=== PATIENT | female | born 1975 | race Caucasian/White ===

== ENCOUNTER → 2016-06-17 | Outpatient (CLI) | payer BC ==
[~2016-06-17] VITALS: Ht 163.8 cm; Wt 148.3 kg
[~2016-06-17] MED LIST: AMBIEN 5MG TABLE5 MG PO; BIAXIN PO; CETIRIZINE; CODEINE30 MG PO; DEPO PROVER150 MG/ML IM; DIOVAN PO; FASTIN30 MG PO; FLONASE NASAL S16 GM NS; FLOVENT; GLUCOPHAGE XR500 M1 PO; LISINOPRIL20 MG PO; MULTI VITAMINS1 TAB PO; PROVENTIL0.09 MG/A1 IH; RT ALBUTER2.5 MG/0.5 IH; SINGULAIR10 MG PO; STEROID; TOPAMAX 25MG25 M1 PO; TOPAMAX50 MG PO; TROKEND50; VITAMIN B-1000 MCG/T PO; VYVANSE30 MG PO; WELLBUTRIN SR150 M1 PO; ZANTAC
[2016-06-17 11:45] VITALS: BP 132/82; PULSE 80
[2016-06-17 12:10] VITALS: BP 132/82; PULSE 80
== END ==
LOC: LIGHT 11:37
DX: E88.81 Metabolic syndrome and other insulin resistance (principal); I10 Essential (primary) hypertension; E66.01 Morbid (severe) obesity due to excess calories; Z68.43 Body mass index [BMI] 50.0-59.9, adult

== ENCOUNTER → 2016-07-22 | Outpatient (CLI) | payer BC ==
[~2016-07-22] VITALS: Ht 163.8 cm; Wt 147.0 kg
[2016-07-22 17:02] VITALS: BP 130/82
== END ==
LOC: LIGHT 08:56
DX: E88.81 Metabolic syndrome and other insulin resistance (principal); I10 Essential (primary) hypertension; E66.01 Morbid (severe) obesity due to excess calories; Z68.43 Body mass index [BMI] 50.0-59.9, adult; R73.01 Impaired fasting glucose

== ENCOUNTER → 2016-10-14 | Outpatient (CLI) | payer BC ==
[~2016-10-14] VITALS: Ht 163.8 cm; Wt 150.4 kg
[2016-10-14 16:48] VITALS: BP 140/84; PULSE 84
== END ==
LOC: LIGHT 08-26 10:06
DX: E88.81 Metabolic syndrome and other insulin resistance (principal); I10 Essential (primary) hypertension; E66.01 Morbid (severe) obesity due to excess calories; Z68.43 Body mass index [BMI] 50.0-59.9, adult

== ENCOUNTER → 2016-11-25 | Outpatient (CLI) | payer BC ==
[~2016-11-25] VITALS: Ht 163.8 cm; Wt 149.0 kg
[2016-11-25 16:15] VITALS: BP 124/90; PULSE 100
== END ==
LOC: LIGHT 16:00
DX: E88.81 Metabolic syndrome and other insulin resistance (principal); I10 Essential (primary) hypertension; E66.01 Morbid (severe) obesity due to excess calories; Z68.43 Body mass index [BMI] 50.0-59.9, adult; Z71.3 Dietary counseling and surveillance

== ENCOUNTER → 2017-06-09 | Outpatient (CLI) | payer BC ==
[~2017-06-09] VITALS: Ht 163.8 cm; Wt 155.1 kg
[2017-06-09 16:55] VITALS: BP 138/100; PULSE 100
== END ==
LOC: LIGHT 01-27 15:39
DX: E88.81 Metabolic syndrome and other insulin resistance (principal); I10 Essential (primary) hypertension; E66.01 Morbid (severe) obesity due to excess calories; Z68.43 Body mass index [BMI] 50.0-59.9, adult; Z71.3 Dietary counseling and surveillance
CPT/HCPCS: G0463

== ENCOUNTER → 2017-07-14 | Outpatient (CLI) | payer BC ==
[~2017-07-14] VITALS: Ht 163.8 cm; Wt 156.0 kg
[~2017-07-14] MED LIST changes: +B-121000 MCG PO; +COZAAR 50MG50 MG/TAB PO; +D-2000 90 MG-201 TAB PO
[2017-07-14 16:11] VITALS: BP 158/98; PULSE 100
== END ==
LOC: LIGHT 09:19
DX: E88.81 Metabolic syndrome and other insulin resistance (principal); I10 Essential (primary) hypertension; E66.01 Morbid (severe) obesity due to excess calories; Z68.43 Body mass index [BMI] 50.0-59.9, adult; Z71.3 Dietary counseling and surveillance
CPT/HCPCS: G0463

== ENCOUNTER → 2017-08-11 | Outpatient (CLI) | payer BC ==
[~2017-08-11] VITALS: Ht 163.8 cm; Wt 154.2 kg
[~2017-08-11] MED LIST changes: -COZAAR 50MG50 MG/TAB PO; +COZAAR100 MG PO
[2017-08-11 08:53] VITALS: BP 130/94; PULSE 64
== END ==
LOC: LIGHT 08:42
DX: E88.81 Metabolic syndrome and other insulin resistance (principal); I10 Essential (primary) hypertension; E66.01 Morbid (severe) obesity due to excess calories; Z68.43 Body mass index [BMI] 50.0-59.9, adult; Z71.3 Dietary counseling and surveillance
CPT/HCPCS: G0463

== ENCOUNTER → 2017-09-08 | Outpatient (CLI) | payer BC ==
[~2017-09-08] VITALS: Ht 163.8 cm; Wt 153.3 kg
[2017-09-08 17:01] VITALS: BP 128/88; PULSE 84
== END ==
LOC: LIGHT 14:48
DX: F50.81 Binge eating disorder (principal)
CPT/HCPCS: G0463

== ENCOUNTER → 2017-12-08 | Outpatient (CLI) | payer BC ==
[~2017-12-08] VITALS: Ht 163.8 cm; Wt 152.0 kg
[2017-12-08 08:52] VITALS: BP 110/80; PULSE 72
== END ==
LOC: LIGHT 10-06 13:46
DX: E88.81 Metabolic syndrome and other insulin resistance (principal); I10 Essential (primary) hypertension; E66.01 Morbid (severe) obesity due to excess calories; Z68.43 Body mass index [BMI] 50.0-59.9, adult; Z71.3 Dietary counseling and surveillance
CPT/HCPCS: G0463

== ENCOUNTER → 2018-01-19 | Outpatient (CLI) | payer BC ==
[~2018-01-19] VITALS: Ht 163.8 cm; Wt 150.1 kg
[2018-01-19 16:49] VITALS: BP 122/55; PULSE 103
== END ==
LOC: LIGHT 13:15
DX: E88.81 Metabolic syndrome and other insulin resistance (principal); I10 Essential (primary) hypertension; E66.01 Morbid (severe) obesity due to excess calories; Z68.43 Body mass index [BMI] 50.0-59.9, adult; Z71.3 Dietary counseling and surveillance
CPT/HCPCS: G0463

== ENCOUNTER → 2018-09-04 | Outpatient (CLI) | payer BC | LOC: ZCOL.LAB 13:50 | DX: L03.115 Cellulitis of right lower limb (principal); S81.801A Unspecified open wound, right lower leg, initial encounter ==